=== PATIENT | female | born 1980 | race Caucasian/White ===

== ENCOUNTER 2019-03-17 18:02 | Emergency (ER) | payer OTHER ==
[~2019-03-17] VITALS: Ht 170.2 cm; Wt 72.6 kg
[~2019-03-17 18:02] MED LIST: COLACE100 MG PO; HYDROCODON-ACE1 EACH PO; IBUPROFEN 600600 M1 PO; PROAIR HFA8.5 GM INH
[2019-03-17 18:16] VITALS: BP 131/92
[2019-03-17] MEDS ORDERED: IBUPROFEN 600600 M1 PO (19:10)
== END 2019-03-17 19:30 | disposition home or self-care (01) ==
LOC: ER 18:02
DX: S93.492A Sprain of other ligament of left ankle, initial encounter (principal); J45.909 Unspecified asthma, uncomplicated; F32.9 Major depressive disorder, single episode, unspecified; F41.9 Anxiety disorder, unspecified; K21.9 Gastro-esophageal reflux disease without esophagitis; Z88.0 Allergy status to penicillin; Z88.5 Allergy status to narcotic agent; Z90.89 Acquired absence of other organs; Z90.710 Acquired absence of both cervix and uterus; X50.1XXA Overexertion from prolonged static or awkward postures, initial encounter; Y92.89 Other specified places as the place of occurrence of the external cause; Y93.89 Activity, other specified; Y99.8 Other external cause status